=== PATIENT | female | born 1965 | race African-American/Black ===

== ENCOUNTER 2017-10-12 07:25 | Outpatient (CLI) | payer BC ==
--- NOTE | 2017-10-12 11:20 | Ultrasound Report ---
ULTRASOUND ABDOMEN LIMITED INDICATION: Abnormal results of liver function study. COMPARISON: None similar. FINDINGS: Right upper quadrant sonography suggests mild diffuse hepatic echogenic coarsening, possibly fatty infiltration versus hepatocellular disease. Grossly preserved contours. No definite focal suspicious lesion or biliary dilatation. No gallstones or pericholecystic fluid. Gallbladder wall thickness is 1.8 mm. Common bile duct is 4.5 mm. Imaged pancreas, nonaneurysmal abdominal aorta and IVC within normal limits. Unremarkable right kidney estimated at 10.5 x 4.3 x 5 cm with cortical thickness of 1.3 cm. CONCLUSION: Coarse, presumably fatty liver without acute sonographic abnormality, as described. Please also correlate clinically and with 11/18/2009 liver biopsy findings. Thank you for the opportunity to participate in this patient's care.
== END 2017-10-12 07:26 | disposition home or self-care (01) ==
LOC: US 07:25
PROVIDERS: ATTEND Internal Medicine Gastroenterology
DX: R10.11 Right upper quadrant pain (principal); R94.5 Abnormal results of liver function studies
CPT/HCPCS: 76705